=== PATIENT | male | born 1995 | race Caucasian/White ===

== ENCOUNTER 2020-10-02 21:49 | Emergency (ER) | payer SELFPAY ==
[2020-10-02 21:59] VITALS: BP 139/88; PULSE 89; RESP 16; TEMP 36.6; O2SAT 97; BMI 30.9
--- NOTE | 2020-10-02 22:28 | XR_ITS ---
WS: [id number] Right leg including the tibia and fibula, AP and lateral views, 10/02/2020 Clinical Data: injury Comparison: None. Findings: No fractures or dislocations are seen. The tibia and fibula are intact. The soft tissues are normal. No radiopaque foreign body is seen. XR/XR tibia fibula RT 2V [id number] Impression: Negative for fracture.
--- NOTE | 2020-10-02 22:52 | W.ED.WOUNDLC ---
HPI - Wound/Laceration General: Chief Complaint: Wound/Laceration Stated Complaint: R LEG LAC/GLASS - DEEP CUT Time Seen by Provider: 10/02/20 22:52 History of Present Illness: HPI narrative: Patient is a 25-year-old male comes to the ED with a laceration on right leg. Patient says just prior to arrival he was taking a bag of trash out and had some glass in it and the bag bumped his leg and the glass cut his skin just below his right knee. Patient's last tetanus was 3 years ago. Associated symptoms: Denies chills, fever(s), nausea or vomiting Review of Systems Const: Denies: fever(s), chills or fatigue Eyes: Denies: change in vision or eye discomfort ENMT: Denies: throat pain, odynophagia, nasal discharge or nasal congestion Card: Denies: chest pain, palpitations, edema, swelling of feet/ankles, dyspnea on exertion or orthopnea Resp: Denies: dyspnea, productive cough or non-productive cough GI: Denies: abdominal pain, nausea, vomiting, diarrhea, constipation or hematochezia : Denies: flank pain, difficulty urinating, dysuria or hematuria Musc: Denies: neck pain, back pain or extremity swelling Skin/Breast: Reports: new lesions (Laceration just below right knee.); Denies: rash Neuro: Denies: headache(s), numbness in extremities or weakness in extremities PFS ED PFSH: Social History Smoking and tobacco status: current every day smoker smokeless tobacco Alcohol intake: never Physical Exam Const: COMMON NORMALS: no acute distress, patient oriented x3, healthy appearing and alert GENERAL APPEARANCE: cooperative and comfortable HENMT: COMMON NORMALS: normocephalic HEAD & SCALP: normocephalic MOUTH: Normal oral and palatal mucosa present THROAT: posterior oropharynx normal and uvula midline Neck/C-Spine: COMMON NORMALS: supple GENERAL: Yes normal visual inspection Resp: COMMON NORMALS: normal respiratory effort, No retractions, No use of accessory muscles and clear to auscultation bilaterally AUSCULTATION: clear to auscultation bilaterally Cardio: COMMON NORMALS: regular rate, regular rhythm, S1 normal heart sound present, S2 normal heart sound present, No gallops present (Cardio), No clicks present (Cardio), No murmurs present (Cardio) and Peripheral pulses 2+ throughout RATE: regular rate RHYTHM: regular rhythm HEART SOUNDS: S1 normal heart sound present and S2 normal heart sound present PERIPHERAL PULSES: Peripheral pulses 2+ throughout GI: COMMON NORMALS: Normal to inspection, nondistended, normoactive bowel sounds present, Soft to palpation, non-tender and no masses PALPATION: Yes Soft to palpation : COMMON NORMALS: Yes no CVA tenderness BLADDER/KIDNEY EXAM: Yes no CVA tenderness Back/Pelvis: COMMON NORMALS: no CVA tenderness Extremity: NARRATIVE EXTREMITY EXAM: Below right knee patient has a superficial linear laceration approximately 5 cm in length. It is clean and noncontaminated. Minimal active bleeding. GENERAL: Yes normal exam except as noted Neuro: COMMON NORMALS: patient oriented x3 and moves all extremities SENSORIUM/ORIENTATION: Yes alert Skin: NARRATIVE SKIN EXAM: Below right knee patient has a superficial linear laceration approximately 5 cm in length. It is clean and noncontaminated. Minimal active bleeding. GENERAL SKIN EXAM: dry skin Procedures Laceration Laceration 1: Site: lower extremity Side (If applicable): right Size (cm): 5 Description: linear and clean Depth: simple, single layer Local Anesthetic: lidocaine 1% and with epi Amount of anesthesia used (mL): 10 Pre-repair: irrigated extensively (With normal saline and then painted with iodine swab.) Size (cm): 4-0 Number of sutures: 10 Technique: simple, interrupted Course Vital Signs: Vital signs: Vital Signs Temperature 98 F 10/02/20 23:43 Pulse Rate 74 10/02/20 23:43 Respiratory Rate 15 10/02/20 23:43 Blood Pressure 127/79 10/02/20 23:43 Pulse Oximetry 94 10/02/20 23:43 MDM - Wound/Laceration MDM Narrative: Medical decision making narrative: Patient is a 25-year-old male comes to the ED with a laceration to right lower leg. Patient cut leg on a piece of broken glass that was in the trash bag he was carrying outside. Upon exam patient has a linear and superficial 5 cm laceration to right lower leg just knee. X-ray of right tib-fib showed no acute fractures or findings and no foreign body seen. Laceration was irrigated extensively with normal saline and cleaned with iodine swab. Lidocaine 1% with epi was used as local. 10 sutures were placed to close laceration. Patient was instructed on suture and laceration wound care. Patient diagnosed with laceration of right leg and discharged home with a prophylactic prescription for cephalexin. Patient instructed to have sutures removed in 7 to 10 days. Patient understood agree with plan. Imaging Data^: Xray Ortho: Attestation: I personally reviewed and interpreted this imaging study as follows: My impression: Right tib-fib x-ray?no acute fractures or foreign body seen. Discharge Plan Discharge Patient Disposition: Home Clinical Impression: Laceration of leg, right Qualifiers: Encounter type: initial encounter Qualified Code(s): S81.811A - Laceration without foreign body, right lower leg, initial encounter Condition: Stable Prescriptions: New cephalexin 500 mg capsule 500 mg PO Q6H 3 Days Qty: 12 RF: 0 No Action No Known Home Medications RF: 0 Discharge Orders: Discharge ED (Routine); Ordered 10/02/20 Ordered By: Javier Muir Discharge Diet: Regular Discharge Activity: Increase activity as tolerated Patient Instructions: Suture Care (ED), Laceration (ED) Activity Restrictions/Additional Instructions: Take full course of antibiotics as prescribed. Keep laceration site clean and dry for the next 48 hours. Then after that you can clean and re-bandage daily. Watch for signs of infection such as redness, warmth, increased tenderness and puslike drainage. If you see the signs of infection return to the ED, urgent care or PCP for reevaluation. call your PCP to schedule a follow-up appointment for reevaluation and suture removal in about 10 days. Continue taking all home meds. Follow discharge plans as discussed. You can return to the ED if symptoms worsen. Coding Level of Care Code ED [employer] for [employer] Fwraymundo Exam Comprehensive
--- NOTE | 2020-10-02 23:42 | PC.NURSE ---
Telfa dressing applied over stitches and secured with coban.
[2020-10-02 23:43] VITALS: BP 127/79; PULSE 74; RESP 15; TEMP 36.6; O2SAT 94
== END 2020-10-02 23:44 | disposition home or self-care (01) ==
PROVIDERS: Emergency Provider Physician Assistant
DX: S81.811A Laceration without foreign body, right lower leg, initial encounter (principal); F17.210 Nicotine dependence, cigarettes, uncomplicated; W25.XXXA Contact with sharp glass, initial encounter
CPT/HCPCS: 12002; 73590; 99283